=== PATIENT | female | born 1965 | race Caucasian/White ===

== ENCOUNTER 2023-01-08 16:51 | Emergency (ER) | payer BC ==
[~2023-01-08] VITALS: Ht 177.8 cm; Wt 61.7 kg
[2023-01-08 16:51] VITALS: O2SAT 98
[2023-01-08] MEDS ORDERED: ACETAMINOPHEN/CODEINE 300-30 MG TABLET PO ONE (17:00)
[2023-01-08] MEDS ORDERED: ACETAMINOPHEN/CODEINE 300-30 MG TABLET ONE (17:04)
[2023-01-08] MEDS ORDERED: ACET1TAB23 PO (17:18)
== END 2023-01-08 17:36 | disposition home or self-care (01) ==
LOC: ER 16:52
DX: S62.102A Fracture of unspecified carpal bone, left wrist, initial encounter for closed fracture (principal); Z79.899 Other long term (current) drug therapy; W01.0XXA Fall on same level from slipping, tripping and stumbling without subsequent striking against object, initial encounter; Y93.89 Activity, other specified; Y92.89 Other specified places as the place of occurrence of the external cause; Y99.8 Other external cause status
CPT/HCPCS: 73110; A4663